=== PATIENT | female | born 1950 | race Caucasian/White ===

== ENCOUNTER 2019-08-25 19:19 | Emergency (ER) | payer OTHER ==
[2019-08-25 19:53] VITALS: BP 163/92; PULSE 92; TEMP 98.6; BMI 27.4
[2019-08-25 19:54] LABS: EPITHELIAL CELLS FEW /hpf
--- NOTE | 2019-08-25 19:54 | PDOC ---
Documentation entered by Eyal Suazo SCRIBE, acting as scribe for Alma Rosa Mora MD. Alma Rosa Mora MD: This documentation has been prepared by the Lakeisha varela Nirvannie, SCRIBE, under my direction and personally reviewed by me in its entirety. I confirm that the documentation accurately reflects all work, treatment, procedures, and medical decision making performed by me. History of Present Illness - General Chief Complaint: Pain, Acute Stated Complaint: RLQ PAIN Time Seen by Provider: 08/25/19 19:27 History Source: Patient Exam Limitations: No Limitations - History of Present Illness Initial Comments: 08/25/19 19:52 HPI: The patient is a 68 year old female, with a significant past medical history of nephrolithiasis and DM, who presents to the emergency department with 1 day of right flank pain with radiation to the right groin. Patient describes her pain as waxing and waning and currently a 5/10. As per patient, she was evaluated in urgent care for her symptoms prior to her arrival at which time she was found to have a WBC of 16 and RBC in her urine, prompting her arrival to the ED. She denies recent fevers, chills, headache or dizziness. She denies recent nausea, vomit, diarrhea or constipation. She denies recent dysuria, frequency, or urgency. She denies recent chest pain or shortness of breath. PAST MEDICAL HISTORY: Nephrolithiasis and DM PAST SURGICAL HISTORY: no significant history FAMILY HISTORY: no pertinent history SOCIAL HISTORY: Pt lives with family and is employed. MEDICATIONS: reviewed ALLERGIES: As per nursing notes. ROS: General: No fevers or chills, no weakness, no weight loss HEENT: No change in vision. No sore throat,. No ear pain CardioVascular: No chest pain or shortness of breath Respiratory:No cough, or wheezing. Gastrointestinal: no nausea, vomiting, diarrhea or constipation, No rectal bleeding Genitourinary: +Right flank pain. No dysuria, hematuria, or frequency Musculoskeletal: No joint or muscle pain or swelling Neurologic: No headache, vertigo, dizziness or loss of consciousness Psychiatric: nor depression Skin: No rashes or easy bruising Endocrine: no increased thirst or abnormal weight change Allergic: no skin or latex allergy All other systems reviewed and normal Physical Exam: General: Well-nourished well-developed individual, no acute distress HEENT: Throat: Normal, tonsils normal, no erythema or exudate Neck: Supple, no meningeal signs, no lymphadenopathy Eyes::Pupils equal reactive and round, extraocular motion intact Chest: Nontender to palpation Cardiac: S1-S2 normal, regular rate and rhythm, no murmurs rubs or gallops Abdomen: +Right flank tenderness. +Right lower quadrant tenderness. No CVA tenderness. Soft, nondistended, normal bowel sounds. Extremities: Warm, dry, no cyanosis, clubbing, or edema Skin: No rashes Neuro: Alert and oriented x3, nonfocal exam, grossly intact, normal gait Psych: Normal mood and affect Assessment and plan: This is a 68-year-old female who was sent in from an urgent care center for evaluation of right flank pain. Patient had a urine done at the urgent care center that did show hematuria however that result was not transmitted to us. Patient does have a mildly elevated white count of 16, 000 with a left shift. Patient is a diabetic and her glucose is also high. We will obtain a noncontrast CT to rule out renal colic/pyelonephritis. 08/25/19 21:17 Patient's CAT scan showed a 2 mm stone at the right UVJ. There was some hydronephrosis with some perinephric and periureteral stranding. Patient is urine did show a few bacteria and 5-10 white cells given the fact the patient is a diabetic with an elevated white count and left shift I will start her on antibiotics. I will give her first dose of IV ceftriaxone and send her out with p.o. Bactrim. In addition to that patient was given Percocet a total of 20 tablets 5 mg and Zofran for pain and nausea. Patient referred back to her primary care doctor for follow-up. Patient given copies of her CAT scan and told to follow it up as well with her primary care doctor. As there was note made of an adrenal nodule. Past History - Past Medical History Allergies/Adverse Reactions: Allergies Allergy/AdvReac Type Severity Reaction Status Date / Time ciprofloxacin [From Cipro] AdvReac Intermediate Verified 08/25/19 20:12 Home Medications: Ambulatory Orders Atorvastatin Ca 08/25/19 Escitalopram Oxalate [Lexapro -] 10 mg PO HS 08/25/19 Levothyroxine [Synthroid -] 50 mcg PO DAILY 08/25/19 Metoprolol Tartrate [Lopressor] 50 mg PO BID 08/25/19 Ondansetron [Zofran *Odt*] 8 mg SL TID PRN #18 od.tablet 08/25/19 Oxycodone HCl/Acetaminophen [Percocet 5-325 mg Tablet] 1 tab PO Q4H #20 tablet MDD 8 08/25/19 Ropinirole HCl [Requip -] 0.5 mg PO HS 08/25/19 Sitagliptin Phos/Metformin HCl [Janumet Xr 100-1,000 mg Tablet] 1 tab PO HS Sulfamethoxazole/Trimethoprim [Bactrim DS -] 1 tab PO BID #20 tablet 08/25/19 traZODone HCL [Trazodone HCl] 50 mg PO HS 08/25/19 - Psycho Social/Smoking Cessation Hx Smoking Status: Yes Smoking History: Current every day smoker Number of Cigarettes Smoked Daily: 4 If you are a former smoker, when did you quit?: 1 MONTH AGO 'Breaking Loose' booklet given: 04/05/12 Hx Alcohol Use: No Drug/Substance Use Hx: No Substance Use Type: None Hx Substance Use Treatment: No ED Treatment Course - ADDITIONAL ORDERS Additional order review: Laboratory Results 08/25/19 19:35 Urine Color Yellow Urine Appearance Slightly Urine pH 5.0 Urine Protein 1+ H Urine Glucose (UA) 2+ H Urine Ketones 1+ H Urine Blood 3+ H Urine Nitrite Negative Urine Bilirubin Negative Urine Urobilinogen 0.2 Ur Leukocyte Esterase Negative - RADIOLOGY Radiology Studies Ordered: Category Date Time Status SPIRAL- RENAL-STONE CT [CT] Stat CT Scan 08/25/19 19:32 Ordered Discharge - Discharge Information Problems reviewed: Yes Clinical Impression/Diagnosis: Kidney stone on right side Condition: Good Disposition: HOME - Admission No - Additional Discharge Information Prescriptions: Ondansetron [Zofran *Odt*] 8 mg SL TID PRN #18 od.tablet PRN Reason: Nausea Oxycodone HCl/Acetaminophen [Percocet 5-325 mg Tablet] 1 tab PO Q4H #20 tablet MDD 8 Sulfamethoxazole/Trimethoprim [Bactrim DS -] 1 tab PO BID #20 tablet - Follow up/Referral Referrals: Alaina Israel MD [Primary Care Provider] - - Patient Discharge Instructions Patient Printed Discharge Instructions: DI for Kidney Stones Additional Instructions: Recheck your blood glucose when you get home. - Post Discharge Activity
[2019-08-25] MEDS ORDERED: CEFTRIAXONE 1,000 MG in DEXTROSE 5%-WATER - 50 ML IVPB ONE (20:44)
[2019-08-25] MEDS ORDERED: cefTRIAXone SODIUM 1 GM VIAL ONE (20:48)
[2019-08-25] MEDS ORDERED: INSULIN REGULAR HUMAN 100 UNITS/ML *VIAL IVPUSH ONE (21:02)
[2019-08-25] MEDS ORDERED: INSULIN REGULAR HUMAN 100 UNITS/ML *VIAL ONE (21:06)
== END 2019-08-25 21:34 | disposition home or self-care (01) ==
LOC: FER 19:19
PROC: 3E013VG Introduction of Insulin into Subcutaneous Tissue, Percutaneous Approach (ICD-10-PCS; principal; 2019-08-25)
DX: R10.31 Right lower quadrant pain (principal); Z88.8 Allergy status to other drugs, medicaments and biological substances
CPT/HCPCS: 74176-TC; 81003; 81015; 82962; 87086; 99284-25

== ENCOUNTER 2022-02-24 20:10 | Emergency (ER) | payer OTHER ==
[2022-02-24 20:25] VITALS: BP 156/76; PULSE 88; RESP 17; TEMP 98.1; BMI 26.6
== END 2022-02-24 21:26 | disposition home or self-care (01) ==
LOC: FER 20:10
DX: S93.401A Sprain of unspecified ligament of right ankle, initial encounter (principal)
CPT/HCPCS: 73610-TC-RT-FY; 99284-25